=== PATIENT | female | born 2005 | race Caucasian/White ===

== ENCOUNTER 2023-03-13 21:13 | Emergency (ER) | payer OTHER, SELFPAY ==
[2023-03-13] MEDS ORDERED: Acetaminophen 500 MG TAB ONE (21:26)
[2023-03-13] MEDS ORDERED: Bicillin LA 1.2 MILLION UNITS/2 ML SYRINGE ONE (22:00)
[2023-03-13] MEDS ORDERED: predniSONE 20 MG TAB ONE (22:00)
== END 2023-03-13 22:23 | disposition home or self-care (01) ==
LOC: MADERS 21:13
DX: J02.9 Acute pharyngitis, unspecified (principal)
CPT/HCPCS: 87081; 87430; 87804; 96372; 99283; J0561; J7512